=== PATIENT | female | born 1940 | race Caucasian/White ===

== ENCOUNTER 2017-04-30 08:28 | Outpatient (CLI) | payer MEDICARE ==
--- NOTE | 2017-05-03 16:01 | Mammography Report ---
DIGITAL SCREENING MAMMOGRAM: 04/30/2017 CLINICAL INDICATION: A 77-year-old for screening. COMPARISON: 03/2016, 03/2015, 02/2014, 02/2013, 02/2012, 02/2011, 01/2010. TECHNIQUE: Routine CC and MLO projections were obtained of the breasts. FINDINGS: The breasts demonstrate scattered fibroglandular densities bilaterally. Punctate, typical ly benign calcifications are present. No suspicious masses, clustered microcalcifications, or region s of architectural distortion are identified. IMPRESSION: BENIGN FINDINGS. RECOMMENDATION: Routine annual screening unless otherwise clinically indicated. BIRADS CATEGORY 2 BENIGN FINDINGS. STANDARD QUALIFYING STATEMENTS 1. This examination was reviewed with the aid of Computer-Aided Detection (CAD). 2. A negative or benign imaging report should not delay biopsy if clinically suspicious findings are present. Consider surgical consultation if warranted. More than 5% of cancers are not identified by i maging. 3. Dense breasts may obscure an underlying neoplasm. JOB #: [id number] EXT JOB #:[id number]
== END 2017-04-30 08:29 | disposition home or self-care (01) ==
LOC: DI 08:28
PROVIDERS: ATTEND Internal Medicine
DX: Z12.31 Encounter for screening mammogram for malignant neoplasm of breast (principal)
CPT/HCPCS: 77067

== ENCOUNTER 2017-07-08 09:09 | Day surgery (SDC) | payer MEDICARE ==
[2017-07-08] MEDS ORDERED: LACTATED RINGERS 1,000 ML IV ONE (09:33)
[2017-07-08] MEDS ORDERED: fentaNYL 100 MCG/2 ML VIAL IVP ONE (10:05)
[2017-07-08] MEDS ORDERED: MIDAZOLAM 2 MG/2 ML VIAL IVP ONE (10:05)
[2017-07-08 11:21] VITALS: BP 106/63
== END 2017-07-08 09:10 | disposition home or self-care (01) ==
LOC: SDS 09:09
PROVIDERS: ATTEND Surgery
PROC: 0DBH8ZX Excision of Cecum, Via Natural or Artificial Opening Endoscopic, Diagnostic (ICD-10-PCS; principal; 2017-07-08 10:15)
DX: Z12.11 Encounter for screening for malignant neoplasm of colon (principal); K63.5 Polyp of colon; K57.30 Diverticulosis of large intestine without perforation or abscess without bleeding; K64.8 Other hemorrhoids
CPT/HCPCS: 45380; 88305; J7120

== ENCOUNTER 2018-05-04 11:13 | Outpatient (CLI) | payer MEDICARE ==
--- NOTE | 2018-05-05 10:56 | Mammography Report ---
DIGITAL SCREENING MAMMOGRAM: 05/04/2018 COMPARISON: 04/30/2017, 04/15/2016, 04/09/2015, 03/16/2014, 03/03/2013, 03/04/2012, 02/27/2011 and 02/18/2010. TECHNIQUE: Bilateral digital CC and MLO projections. FINDINGS: There are scattered fibroglandular densities. There is no dominant mass, architectural distortion, skin thickening, suspicious microcalcifications or significant interval change. IMPRESSION: NEGATIVE. BI-RADS CATEGORY 1 - NEGATIVE. SUGGEST RETURN TO ROUTINE SCREENING IN 12 MONTHS. STANDARD QUALIFYING STATEMENTS: 1. This examination was reviewed with the aid of Computer-Aided Detection (CAD). 2. A negative or benign imaging report should not delay biopsy if clinically suspicious findings are present. Consider surgical consultation if warranted. More than 5% of cancers are not identified by imaging. 3. Dense breasts may obscure an underlying neoplasm. TD: 05/05/2018 10:04
== END 2018-05-04 11:14 | disposition home or self-care (01) ==
LOC: DI 11:13
PROVIDERS: ATTEND Internal Medicine
DX: Z12.31 Encounter for screening mammogram for malignant neoplasm of breast (principal)
CPT/HCPCS: 77067

== ENCOUNTER 2019-05-15 08:52 | Outpatient (CLI) | payer MEDICARE ==
--- NOTE | 2019-05-15 10:07 | Mammography Report ---
Reason: SCREENING MAMMO Procedure Date: 05/15/2019 Accession Number: [id number] / [id number] Procedure: FELIPE - Screening Mammo w/Sunil CPT Code: FULL RESULT: EXAM: Screening Mammo w/Sunil DATE: 05/15/2019 9:30 AM CLINICAL HISTORY: Screening encounter. No reported risk factors. TECHNIQUE: (B) - Bilateral CC and MLO views were obtained. COMPARISON: 05/04/2018 through 04/09/2015. PARENCHYMAL PATTERN: (A) - The breast(s) demonstrate(s) scattered fibroglandular densities. FINDINGS: There are no suspicious masses, calcifications, or areas of distortion. IMPRESSION: Negative examination. BI-RADS category 1. RECOMMENDATION: (ANNUAL) - Recommend routine annual screening mammography. BI-RADS CATEGORY: (1) - Negative. STANDARD QUALIFYING STATEMENTS: 1. This examination was not reviewed with the aid of Computer-Aided Detection (CAD). 2. A negative or benign imaging report should not preclude biopsy if clinically suspicious findings are present. 3. Dense breasts may obscure an underlying neoplasm. 4. This examination was reviewed with the aid of 3D breast imaging (tomosynthesis).
== END 2019-05-15 08:53 | disposition home or self-care (01) ==
LOC: DI 08:52
PROVIDERS: ATTEND Internal Medicine
DX: Z12.31 Encounter for screening mammogram for malignant neoplasm of breast (principal)
CPT/HCPCS: 77063; 77067

== ENCOUNTER 2020-07-24 13:28 | Outpatient (CLI) | payer MEDICARE ==
--- NOTE | 2020-07-30 09:43 | Mammography Report ---
BILATERAL DIGITAL SCREENING MAMMOGRAM 3D/2D: 07/24/2020 CLINICAL: Routine screening. Comparison is made to exams dated: 05/15/2019 mammogram, 05/04/2018 mammogram, 04/30/2017 mammogram, 04/15 mammogram, 04/09/2015 mammogram, and 03/16/2014 mammogram - [facility]. There are scattered fibroglandular elements in both breasts. No significant masses, calcifications, or other findings are seen in either breast. There has been no significant interval change. IMPRESSION: NEGATIVE There is no mammographic evidence of malignancy. A 1 year screening mammogram is recommended. This exam was interpreted at Station ID: [id number]. NOTE: For mammograms, a report in lay terms will be sent to the patient. Approximately 15% of breast malignancies will not be visualized mammographically. In the management of a palpable breast mass, a negative mammogram must not discourage biopsy of a clinically suspicious lesion. Electronically Signed By: Solo leal/carmen:07/29/2020 16:47:22 ACR BI-RADS Category 1: Negative 3341F PARENCHYMAL PATTERN: (A) - The breast(s) demonstrate(s) scattered fibroglandular densities. BI-RADS CATEGORY: (1) - 1 RECOMMENDATION: (ANNUAL) - Recommend routine annual screening mammography. [id number] 1 year screening LATERALITY: (B)
== END 2020-07-24 13:29 | disposition home or self-care (01) ==
LOC: DI 13:28
PROVIDERS: ATTEND Internal Medicine
DX: Z12.31 Encounter for screening mammogram for malignant neoplasm of breast (principal)
CPT/HCPCS: 77063; 77067

== ENCOUNTER 2022-06-02 08:00 | Outpatient (CLI) | payer MEDICARE ==
[2022-06-02 16:27] LABS: ALBUMIN/GLOBULIN RATIO 1.3 (1.0-2.2); ALKALINE PHOSPHATASE 59 IU/L (42-121); ALT ALANINE AMINOTRANSFERASE 21 IU/L (10-60); AST ASPARTATE AMINOTRANSFERASE 26 IU/L (10-42); BILIRUBIN,TOTAL 0.9 mg/dL (0.2-1.0); BUN - BLOOD UREA NITROGEN 20 mg/dL (6-20); CALCIUM 9.2 mg/dL (8.5-10.3); CARBON DIOXIDE - CO2 28 mmol/L (21-32); CHLORIDE 99 mmol/L (101-111); CHOL/HDL RATIO 2.9 (<4.4); CHOLESTEROL 238 mg/dL; CREATININE 0.9 mg/dL (0.4-1.0); GFR - MDRD 60 (>89); GLUCOSE 89 mg/dL (70-100); HDL CHOLESTEROL 81 mg/dL; LDL CHOLESTEROL,CALCULATED 147 mg/dL; LDL/HDL RATIO 1.8 (<4.4); SODIUM 136 mmol/L (135-145); TOTAL PROTEIN 7.2 g/dL (6.7-8.2); TRIGLYCERIDES 52 mg/dL; VLDL CHOLESTEROL 10 mg/dL
[2022-06-02 16:40] LABS: BASOPHILS % (AUTO) 0.7 %; EOSINOPHILS # (AUTO) 0.1 10^3/uL (0.0-0.7); EOSINOPHILS % (AUTO) 1.6 %; HCT - HEMATOCRIT 44.4 % (37.0-47.0); HGB - HEMOGLOBIN 14.1 g/dL (12.0-16.0); LYMPHOCYTES # (AUTO) 1.3 10^3/uL (1.5-3.5); LYMPHOCYTES % (AUTO) 28.5 %; MEAN CORPUSCULAR HEMOGLOBIN 29.6 pg (27.0-31.0); MEAN CORPUSCULAR HGB CONC 31.8 g/dL (32.0-36.0); MEAN CORPUSCULAR VOLUME 93.3 fL (81.0-99.0); MEAN PLATELET VOLUME 10.7 fL (7.9-10.8); MONOCYTES # (AUTO) 0.3 10^3/uL (0.0-1.0); MONOCYTES % (AUTO) 6.7 %; NEUTROPHILS # (AUTO) 2.8 10^3/uL (1.5-6.6); NEUTROPHILS % (AUTO) 62.3 %; PLT - PLATELET COUNT 266 10^3/uL (130-450); RED BLOOD COUNT 4.76 10^6/uL (4.20-5.40); RED CELL DISTRIBUTION WIDTH 13.6 % (12.0-15.0); WHITE BLOOD COUNT 4.5 x10^3/uL (4.8-10.8)
[2022-06-02 20:57] LABS: ESTIMATED AVERAGE GLUCOSE 126 mg/dL (70-100)
== END 2022-06-02 23:59 | disposition home or self-care (01) ==
LOC: LAB.R 08:00
PROVIDERS: ATTEND Internal Medicine
DX: Z00.00 Encounter for general adult medical examination without abnormal findings (principal); C44.91 Basal cell carcinoma of skin, unspecified; E55.9 Vitamin D deficiency, unspecified; L30.9 Dermatitis, unspecified; H91.90 Unspecified hearing loss, unspecified ear; Z86.010 Personal history of colon polyps; E78.5 Hyperlipidemia, unspecified; R73.01 Impaired fasting glucose; M19.90 Unspecified osteoarthritis, unspecified site; M25.562 Pain in left knee; R00.2 Palpitations; J30.2 Other seasonal allergic rhinitis; I49.3 Ventricular premature depolarization
CPT/HCPCS: 80053; 80061; 82306; 83036; 83721; 84443; 85025

== ENCOUNTER 2022-06-25 13:24 | Outpatient (CLI) | payer MEDICARE ==
--- NOTE | 2022-06-26 12:35 | Mammography Report ---
BILATERAL DIGITAL SCREENING MAMMOGRAM 3D/2D: 06/25/2022 CLINICAL: Routine screening. Comparison is made to exams dated: 07/24/2020 mammogram, 07/24/2020 mammogram, 05/15/2019 mammogram, 05/04/2018 mammogram, and 04/30/2017 mammogram - [facility]. There are scattered fibrogl andular elements in both breasts. No significant masses, calcifications, or other findings are seen in either breast. There has been no significant interval change. IMPRESSION: NEGATIVE There is no mammographic evidence of malignancy. A 1 year screening mammogram is recommended. Based on the Tyrer Cuzick model (a risk assessment model) the patients lifetime risk is 1.0% and her 10 year risk is 0.0%. According to the ACR, ACS, and NCCN guidelines, an annual breast MRI exam sil g with mammogram is recommended if the patients lifetime risk is 20% or greater. This exam was interpreted at Station ID: [id number]. NOTE: For mammograms, a report in lay terms will be sent to the patient. Approximately 15% of breast malignancies will not be visualized mammographically. In the management of a palpable breast mass, a negative mammogram must not discourage biopsy of a clinically suspicious lesion. Electronically Signed By: Avila Hartman acr/penrad:06/25/2022 16:28:43 ACR BI-RADS Category 1: Negative 3341F PARENCHYMAL PATTERN: (A) - The breast(s) demonstrate(s) scattered fibroglandular densities. BI-RADS CATEGORY: (1) - 1 RECOMMENDATION: (ANNUAL) - Recommend routine annual screening mammography. [id number] 1 year screening LATERALITY: (B)
== END 2022-06-25 13:25 | disposition home or self-care (01) ==
LOC: DI 13:24
PROVIDERS: ATTEND Internal Medicine
DX: Z12.31 Encounter for screening mammogram for malignant neoplasm of breast (principal)

== ENCOUNTER 2023-06-01 18:42 | Emergency (ER) | payer MEDICARE ==
[2023-06-01 18:54] VITALS: BP 152/80
[2023-06-01 19:15] LABS: BASOPHILS # (AUTO) 0.1 10^3/uL (0.0-0.1); BASOPHILS % (AUTO) 0.6 %; EOSINOPHILS # (AUTO) 0.1 10^3/uL (0.0-0.7); HCT - HEMATOCRIT 41.5 % (37.0-47.0); HGB - HEMOGLOBIN 13.2 g/dL (12.0-16.0); LYMPHOCYTES # (AUTO) 1.5 10^3/uL (1.5-3.5); LYMPHOCYTES % (AUTO) 16.5 %; MEAN CORPUSCULAR HEMOGLOBIN 29.1 pg (27.0-31.0); MEAN CORPUSCULAR HGB CONC 31.8 g/dL (32.0-36.0); MEAN CORPUSCULAR VOLUME 91.4 fL (81.0-99.0); MEAN PLATELET VOLUME 9.7 fL (7.9-10.8); MONOCYTES # (AUTO) 0.7 10^3/uL (0.0-1.0); MONOCYTES % (AUTO) 8.1 %; NEUTROPHILS # (AUTO) 6.4 10^3/uL (1.5-6.6); NEUTROPHILS % (AUTO) 73.5 %; PLT - PLATELET COUNT 271 10^3/uL (130-450); RED BLOOD COUNT 4.54 10^6/uL (4.20-5.40); RED CELL DISTRIBUTION WIDTH 13.6 % (12.0-15.0); WHITE BLOOD COUNT 8.8 x10^3/uL (4.8-10.8)
--- NOTE | 2023-06-01 19:30 | ED Physician Documentation ---
PD HPI CHEST PAIN - Stated complaint Stated Complaint: LT SHOULDER/CHEST PX - Chief complaint Chief Complaint: Cardiac - History obtained from History obtained from: Patient - Additional information Additional information: Walking around [place] a lot 2 days ago with a backpack. She developed left shoulder pain which concerned her because it did radiate to the left jaw and in the left armpit. It is not worse with exertion. It is worse if she wears a backpack where she lifts her left arm. There is no associated shortness of breath, dizziness, sweatiness, nausea, pedal edema, calf pain, or more significant traveled into [place]. No history of heart problems. Really no risk factors either other than age. PD PAST MEDICAL HISTORY - Past Medical History Cardiovascular: Other Respiratory: Pneumonia GI: Other HEENT: None - Past Surgical History General: Colonoscopy, Other - Allergies Allergies/Adverse Reactions: Allergies Allergy/AdvReac Type Severity Reaction Status Date / Time adhesive tape AdvReac Itching Verified 06/01/23 18:46 PD ED PE NORMAL - Vitals Vital signs reviewed: Yes - General General: Alert and oriented X 3, No acute distress - HEENT HEENT: PERRL, EOMI - Neck Neck: Supple, no meningeal sign, No bony TTP - Cardiac Cardiac: RRR, No murmur - Respiratory Respiratory: No respiratory distress, Clear bilaterally - Abdomen Abdomen: Normal bowel sounds, Soft, Non tender - Back Back: No CVA TTP, No spinal TTP - Derm Derm: Normal color, Warm and dry - Extremities Extremities: No edema, No calf tenderness / cord, Other (I am able to recreate the pain that she is here for with palpation of the muscles in the supraclavicular area of the left shoulder. She has pain if she lifts the arm more than 90 degrees, but does better passively.) - Neuro Neuro: Alert and oriented X 3, Normal speech Results - Vitals Vitals: Vital Signs - 24 hr 06/01/23 06/01/23 18:46 20:16 Temperature 36.7 C Heart Rate 85 72 Respiratory 18 16 Rate Blood Pressure 152/80 H 152/80 H O2 Saturation 100 100 Oxygen O2 Source Room air - EKG (time done) 1855 EKG releavant findings:: EKG personally interpreted by author of this note. Relevant findings are: Rate: Rate (enter#) (78) Rhythm: NSR Merritt: Normal Intervals: Normal [place] QRS: Normal Ischemia: Normal ST segments - Labs Labs: Laboratory Tests 06/01/23 06/01/23 06/01/23 19:10 19:10 19:10 WBC 8.8 RBC 4.54 Hgb 13.2 Hct 41.5 MCV 91.4 MCH 29.1 MCHC 31.8 L RDW 13.6 Plt Count 271 MPV 9.7 Neut # (Auto) 6.4 Lymph # (Auto) 1.5 Stewart # (Auto) 0.7 Eos # (Auto) 0.1 Baso # (Auto) 0.1 Absolute Nucleated RBC 0.00 Nucleated RBC % 0.0 Sodium 136 Potassium 4.4 Chloride 101 Carbon Dioxide 23 Anion Gap 12.0 BUN 24 H Creatinine 1.0 Estimated GFR (MDRD) 53 L Glucose 99 Calcium 8.6 Total Bilirubin 0.7 AST 26 ALT 17 Alkaline Phosphatase 63 Troponin I High Sens 2.4 Total Protein 7.2 Albumin 3.9 Globulin 3.3 Albumin/Globulin Ratio 1.2 Lipase 37 - Rads (name of study) Single view chest x-ray is unremarkable Relevant Findings:: Final report received, EMP independent interpretation of test PD Medical Decision Making - ED course Complexity details: reviewed results (CBC normal/negative troponin normal/negative. ) ED course: Pain is reproducible with palpation of the left shoulder and brought on by carrying a backpack all day. It is not exertional at this point and has been going on long enough that a single troponin should be predictive. Departure - Departure Disposition: 01 Home, Self Care Clinical Impression: Left shoulder pain Qualifiers: Chronicity: acute Qualified Code(s): M25.512 - Pain in left shoulder Condition: Good Record reviewed to determine appropriate education?: Yes Instructions: ED Chest Pain NonCardiac Comments: Troponin testing and EKG today were normal suggesting against heart attack related chest pain which fits the history and physical which would suggest a musculoskeletal cause of the pain related to your left shoulder and the backpack use. Call your doctor to arrange a follow-up appointment, make the next available appointment. In the interim, return anytime if worse or if new symptoms develop. Discharge Date/Time: 06/01/23 20:23
[2023-06-01 20:01] LABS: ALBUMIN 3.9 g/dL (3.2-5.5); ALBUMIN/GLOBULIN RATIO 1.2 (1.0-2.2); BILIRUBIN,TOTAL 0.7 mg/dL (0.2-1.0); CALCIUM 8.6 mg/dL (8.5-10.3); POTASSIUM 4.4 mmol/L (3.5-5.0); TOTAL PROTEIN 7.2 g/dL (6.7-8.2)
--- NOTE | 2023-06-01 20:23 | XRAY Report ---
PROCEDURE: Chest 1 View X-Ray INDICATIONS: Chest Pain TECHNIQUE: One view of the chest was acquired. COMPARISON: None. FINDINGS: Surgical changes and devices: None. Lungs and pleura: No pleural effusions or pneumothorax. Lungs are clear. Mediastinum: Mediastinal contours appear normal. Heart size is normal. Bones and chest wall: No suspicious bony lesions. Overlying soft tissues appear unremarkable. IMPRESSION: No acute cardiopulmonary disease. Reviewed by: Solo Hawk MD on 06/01/2023 8:21 PM PDT Approved by: Solo Hawk MD on 06/01/2023 8:21 PM PDT Station ID: [id number]
== END 2023-06-01 20:23 | disposition home or self-care (01) ==
LOC: ED 18:42
DX: M25.512 Pain in left shoulder (principal)
CPT/HCPCS: 36415; 80053; 83690; 84484; 85025; 93005; 99283; 99284

== ENCOUNTER 2023-07-29 10:04 | Outpatient (CLI) | payer MEDICARE ==
--- NOTE | 2023-07-30 16:30 | Mammography Report ---
BILATERAL DIGITAL SCREENING MAMMOGRAM: 07/29/2023 CLINICAL: Routine screening. Comparison is made to exams dated: 06/25/2022 mammogram, 07/24/2020 mammogram, 07/24/2020 mammogram, mammogram, 05/04/2018 mammogram, and 04/30/2017 mammogram - [facility]. Both breasts are almost entirely fatty (category a/<25% glandular tissue). There are benign vascular calcifications in the left breast. No significant masses, calcifications, or other findings are seen in either breast. There has been no significant interval change. IMPRESSION: BENIGN There is no mammographic evidence of malignancy. A 1 year screening mammogram is recommended. Based on the Tyrer Cuzick model (a risk assessment model) the patients lifetime risk is 0.4% and her 10 year risk is 0.0%. According to the ACR, ACS, and NCCN guidelines, an annual breast MRI exam sil g with mammogram is recommended if the patients lifetime risk is 20% or greater. This exam was interpreted at Station ID: [id number]. NOTE: For mammograms, a report in lay terms will be sent to the patient. Approximately 15% of breast malignancies will not be visualized mammographically. In the management of a palpable breast mass, a negative mammogram must not discourage biopsy of a clinically suspicious lesion. Electronically Signed By: Monica ruby/carmen:07/30/2023 15:55:31 letter sent: No_Letter ACR BI-RADS Category 2: Benign Finding(s) 3342F PARENCHYMAL PATTERN: (F) - The breast(s) demonstrate(s) diffuse fatty replacement. BI-RADS CATEGORY: (2) - 2 Mammogram [id number] 1 year screening LATERALITY: (B)
== END 2023-07-29 10:05 | disposition home or self-care (01) ==
LOC: DI 10:04
PROVIDERS: ATTEND Internal Medicine
DX: Z12.31 Encounter for screening mammogram for malignant neoplasm of breast (principal)

== ENCOUNTER 2024-04-27 07:02 | Day surgery (SDC) | payer MEDICARE ==
[2024-04-27] MEDS: PROPARACAINE 0.5% OPHTH DROPS 15 ML ONE (07:15)
[2024-04-27] MEDS: KETOROLAC 0.45% OPHTH DROPS ONE (07:16)
[2024-04-27] MEDS: PHENYLEPHRINE 2.5% OPHTH 2 ML DROPS ONE (07:18)
[2024-04-27] MEDS: CYCLOPENTOLATE 1% OPHTH DROPS 2 ML ONE (07:18)
[2024-04-27] MEDS: LACTATED RINGERS 1,000 ML IV ONE ×2 (07:30→09:08)
--- NOTE | 2024-04-27 07:52 | ANESTHESIA ---
Pre-Anesthesia VS, & Labs - Diagnosis R senile combined cataract - Procedure R extraction cataract with IOL Vital Signs: Temp Pulse Resp BP Pulse Ox O2 Flow Rate 36.5 C 88 16 157/84 H 97 04/27/24 07:13 04/27/24 07:13 04/27/24 07:13 04/27/24 07:13 04/27/24 07:13 Height: 5 ft 9 in Weight (kg): 68.1 kg Body Mass Index: 22.1 BMI Classification: Normal - NPO Last Fluid Intake: 0545 sips h20 - Is Patient ?: No - Lab Results Lab results reviewed: Yes Home Medications and Allergies Allergies/Adverse Reactions: Allergies Allergy/AdvReac Type Severity Reaction Status Date / Time adhesive tape AdvReac Itching Verified 06/01/23 18:46 Anes History & Medical History - Anesthetic History Anesthesia Complications: reports: No previous complications Family history of Anesthesia Complications: Denies Family history of Malignant Hyperthermia: Denies - Medical History Cardiovascular: reports: None Pulmonary: reports: None Gastrointestinal: reports: None Urinary: reports: None Musculoskeletal: reports: Osteoarthritis Endocrine/Autoimmune: reports: None Skin: reports: Eczema - Surgical History General: reports: Colonoscopy Exam General: Alert, Oriented x3, Cooperative Dental: WNL Mouth Openin Fingerbreadth Neck Mobility: Normal Mallampati classification: II Thyromental Distance: 4-6 cm Respiratory: Lungs clear, Normal breath sounds, No respiratory distress Cardiovascular: Regular rate Neurological: Normal speech Mental/Cognitive Status: Alert/Oriented X3, Normal for patient Cognitive Status: Within normal limits Plan Anesthesia Type: MAC Consent for Procedure(s) Verified and Reviewed: Yes Code Status: Attempt Resuscitation ASA classification: 2-Mild systemic disease Is this case an emergency?: No
[2024-04-27] MEDS ORDERED: MIDAZOLAM 2 MG/2 ML VIAL ONE (08:19)
[2024-04-27] MEDS ORDERED: BRIMONIDINE 0.2% OPHTH DROPS 5 ML ONE (08:31)
[2024-04-27] MEDS ORDERED: TIMOLOL 0.5% OPHTH DROPS ONE (08:31)
[2024-04-27] MEDS ORDERED: EPINEPHrine 1 MG/ML AMP ONE (08:31)
[2024-04-27] MEDS ORDERED: BSS/LIDOCAINE/EPINEPHRINE 1 ML VIAL ONE ×2 (08:31→08:54)
[2024-04-27] MEDS ORDERED: TRIAMCIN/MOXIFLOX OPHTHALMIC 0.6 ML VIAL IO ONE (08:31)
[2024-04-27] MEDS ORDERED: fentaNYL 100 MCG/2 ML VIAL ONE (08:56)
[2024-04-27] MEDS: TIMOLOL 0.5% OPHTH DROPS OPTH ONE (09:00)
[2024-04-27] MEDS: BRIMONIDINE 0.2% OPHTH DROPS 5 ML OPTH ONE (09:00)
[2024-04-27] MEDS: TRIAMCIN/MOXIFLOX OPHTHALMIC 0.6 ML VIAL IO ONE (09:00)
[2024-04-27] MEDS: BSS/LIDOCAINE/EPINEPHRINE 1 ML SYRINGE IO ONE (09:00)
[2024-04-27] MEDS: EPINEPHrine 1 MG/ML AMP IR ONE (09:00)
[2024-04-27] MEDS: PROPARACAINE 0.5% OPHTH DROPS 15 ML RIGHTEYE ONE (09:00)
[2024-04-27] MEDS: VANCOMYCIN OPHTH (TOPICAL) 10 MG/ML SYRINGE TOP ONE (09:01)
--- NOTE | 2024-04-27 09:18 | OPERATIVE REPORT ---
Operative Report - Other Other Information/Narrative: Date of Surgery: 04/27/24 Preop Dx: Visually significant cataract right eye. This was the first cataract surgery. Postop Dx: Same Procedure: Phacoemulsification with posterior chamber intraocular lens implant right eye Surgeon: Dr. Dario Burns Anesthesia: Monitored anesthesia care Complications: None Operative Indications: This is a 84-year-old F with progressive vision loss in the right eye due to 2-3+ nuclear sclerotic, 3+ cortical, and 1+ posterior subcapsular cataract. Best corrected visual acuity was 20/40 with glare to hand motion vision in the right eye. Indications for surgery were: - Overall decrease in vision - Difficulty seeing words on a computer screen - Difficulty seeing words, closed captions, or game scores on TV - Difficulty seeing street signs - Difficulty driving in low light or at night - Difficulty driving at night because of headlights from other vehicles - Difficulty with glare or bright lights in any situation The patient was consented at length concerning the risks and benefits of cataract surgery after which the patient expressed a desire to proceed with surgery. Operative Procedure: The patient was taken into OR#3 and placed under monitored anesthesia care. A surgical time-out was conducted confirming correct patient, correct procedure, and correct surgical site. The patient was given topical anesthesia and then prepped and draped in the usual sterile fashion. The eye was entered at the 6 and 3 oclock positions. Intracameral Shugarcaine was injected into the anterior chamber followed by a dispersive viscoelastic. A continuous-tear curvilinear capsulorhexis was performed. The nucleus was hydrodissected and phacoemulsified. The cortex was evacuated using automated infusion and aspiration. A cohesive viscoelastic was injected into the capsular bag and a 18.5 diopter intraocular lens was inserted into the bag. Infusion and aspiration were used to evacuate the viscoelastic materials from the eye. The wounds were hydrated and the eye inflated to physiologic pressure using balanced salt solution. Approximately 0.25ml of a mixture of triamcinolone and moxifloxacin was injected trans-sclerally into the vitreous in the inferotemporal quadrant using a 30 gauge cannula. An additional 0.25ml of a mixture of triamcinolone and moxifloxacin was injected subconjunctivally in the superior quadrant for infection and inflammation prophylaxis. Wound integrity was checked with Weck-Tracey sponges. The patient was taken from the operating room in good condition and given post-op instructions.
[2024-04-27 09:21] VITALS: O2SAT 98
[2024-04-27 09:41] VITALS: BP 124/82
--- NOTE | 2024-04-27 10:12 | ANESTHESIA POST OP EVALUATION ---
Anesthesia Post Eval - Post Anesthesia Eval Vitals: Last Vital Signs Temp 36.3 C L 04/27/24 09:29 Pulse 84 04/27/24 09:29 Resp 14 04/27/24 09:29 BP 124/82 H 04/27/24 09:29 Pulse Ox 98 04/27/24 09:29 O2 Flow Rate CV Function Including HR & BP: Stable Pain Control: Satisfactory Nausea & Vomiting: Negative Mental Status: Baseline Respiratory Status: Airway Patent Hydration Status: Satisfactory Anesthesia Complications: None
== END 2024-04-27 07:03 | disposition home or self-care (01) ==
LOC: SDS 07:02
PROVIDERS: ATTEND Ophthalmology
DX: H25.811 Combined forms of age-related cataract, right eye (principal)
CPT/HCPCS: 66984; A9270; J3490; J7120

== ENCOUNTER 2024-06-06 10:03 | Outpatient (CLI) | payer MEDICARE ==
--- NOTE | 2024-06-06 13:31 | Ultrasound Report ---
PROCEDURE: Duplex Ext Veins Left INDICATIONS: PAININ LEFT LEG TECHNIQUE: Real-time imaging, as well as color and pulse Doppler interrogation, were performed of the lower extr emity deep veins from the inguinal ligament to the popliteal fossa. Attempted visualization of the ca lf veins was performed. COMPARISON: None. FINDINGS: The deep veins are normally compressible, and free of intraluminal thrombus. Color and pu lse Doppler demonstrate normal phasic intraluminal flow. There is normal augmentation response to di stal compression maneuver. Popliteal fossa cyst is present measuring 4.1 x 1.0 x 2.4 cm. IMPRESSION: No deep venous thrombosis of the visualized lower extremity. Posterior fossa Do's cyst. Reviewed by: Norma Gerber MD on 06/06/2024 1:30 PM PDT Approved by: Norma Gerber MD on 06/06/2024 1:30 PM PDT Station ID: [id number]
== END 2024-06-06 10:04 | disposition home or self-care (01) ==
LOC: DI 10:03
PROVIDERS: ATTEND Internal Medicine
DX: M71.22 Synovial cyst of popliteal space [Baker], left knee (principal)

== ENCOUNTER 2024-07-06 07:18 | Day surgery (SDC) | payer MEDICARE ==
[2024-07-06] MEDS: LACTATED RINGERS 1,000 ML IV ONE ×2 (07:24→09:04)
[2024-07-06] MEDS: PROPARACAINE 0.5% OPHTH DROPS 15 ML ONE (07:40)
[2024-07-06] MEDS: KETOROLAC TROMETHAMINE 0.5% OPHTH DROPS 5 ML ONE (07:41)
[2024-07-06] MEDS: CYCLOPENTOLATE 1% OPHTH DROPS 2 ML ONE (07:42)
[2024-07-06] MEDS: PHENYLEPHRINE 2.5% OPHTH 2 ML DROPS ONE (07:48)
[2024-07-06] MEDS ORDERED: MIDAZOLAM 2 MG/2 ML VIAL ONE (08:21)
[2024-07-06] MEDS ORDERED: EPINEPHrine 1 MG/ML AMP ONE (08:23)
[2024-07-06] MEDS ORDERED: BSS/LIDOCAINE/EPINEPHRINE 1 ML VIAL ONE (08:23)
[2024-07-06] MEDS ORDERED: TRIAMCIN/MOXIFLOX OPHTHALMIC 0.6 ML VIAL IO ONE (08:23)
[2024-07-06] MEDS ORDERED: TIMOLOL 0.5% OPHTH DROPS ONE (08:23)
[2024-07-06] MEDS ORDERED: BRIMONIDINE 0.2% OPHTH DROPS 5 ML ONE (08:23)
--- NOTE | 2024-07-06 08:42 | ANESTHESIA ---
Pre-Anesthesia VS, & Labs - Diagnosis L cataract - Procedure L PhacoIOL Vital Signs: Temp Pulse Resp BP Pulse Ox O2 Flow Rate 36 C L 79 16 157/87 H 98 07/06/24 07:28 07/06/24 07:28 07/06/24 07:28 07/06/24 07:28 07/06/24 07:28 Height: 5 ft 9 in Weight (kg): 62.5 kg Body Mass Index: 20.3 BMI Classification: Normal - NPO >8 hours - Is Patient ?: No Home Medications and Allergies Home Medications: Ambulatory Orders B-Complex with Vitamin C [Vitamin B-Complex with Vit C] 1 each PO DAILY 07/05/24 Vitamin E Mixed [Vitamin E] 1,000 unit PO DAILY 07/05/24 B-Complex with Vitamin C [Vitamin B-Complex with Vit C] 1 each PO DAILY 07/05/24 Vitamin E Mixed [Vitamin E] 1,000 unit PO DAILY 07/05/24 Allergies/Adverse Reactions: Allergies Allergy/AdvReac Type Severity Reaction Status Date / Time adhesive tape AdvReac Itching Verified 06/01/23 18:46 Anes History & Medical History - Anesthetic History Anesthesia Complications: reports: No previous complications Family history of Anesthesia Complications: Denies Family history of Malignant Hyperthermia: Denies - Medical History Cardiovascular: reports: None Pulmonary: reports: None Gastrointestinal: reports: None Urinary: reports: None Musculoskeletal: reports: Osteoarthritis Endocrine/Autoimmune: reports: None Skin: reports: Eczema - Surgical History General: reports: Colonoscopy Exam General: Alert, Oriented x3, Cooperative Dental: WNL Mouth Openin Fingerbreadth Neck Mobility: Normal Mallampati classification: II Thyromental Distance: 4-6 cm Respiratory: Lungs clear Cardiovascular: Regular rate Plan Anesthesia Type: MAC Consent for Procedure(s) Verified and Reviewed: Yes Code Status: Attempt Resuscitation ASA classification: 2-Mild systemic disease Is this case an emergency?: No
[2024-07-06] MEDS: EPINEPHrine 1 MG/ML AMP IR ONE (08:49)
[2024-07-06] MEDS: BRIMONIDINE 0.2% OPHTH DROPS 5 ML OPTH ONE (08:49)
[2024-07-06] MEDS: TIMOLOL 0.5% OPHTH DROPS OPTH ONE (08:49)
[2024-07-06] MEDS: BSS/LIDOCAINE/EPINEPHRINE 1 ML SYRINGE IO ONE (08:50)
[2024-07-06] MEDS: PROPARACAINE 0.5% OPHTH DROPS 15 ML LEFTEYE ONE (08:50)
[2024-07-06] MEDS: VANCOMYCIN OPHTH (TOPICAL) 10 MG/ML SYRINGE TOP ONE (08:50)
[2024-07-06] MEDS: TRIAMCIN/MOXIFLOX OPHTHALMIC 0.6 ML VIAL IO ONE (08:50)
[2024-07-06 09:07] VITALS: O2SAT 97
--- NOTE | 2024-07-06 09:10 | OPERATIVE REPORT ---
Operative Report - Other Other Information/Narrative: Date of Surgery: 07/06/24 Preop Dx: Visually significant cataract left eye. Cataract surgery was performed in the right eye on [id number]. Postop Dx: Same Procedure: Phacoemulsification with posterior chamber intraocular lens implant left eye Surgeon: Dr. Dario Burns Anesthesia: Monitored anesthesia care Complications: None Operative Indications: This is a 84-year-old F with progressive vision loss in the left eye due to 2-3+ nuclear sclerotic, 3+ cortical, and 1+ posterior subcapsular cataract. Best corrected visual acuity was 20/40 with glare to 20/400 vision in the left eye. Indications for surgery were: - Overall decrease in vision - Difficulty seeing words on a computer screen - Difficulty reading - Difficulty seeing words, closed captions, or game scores on TV - Difficulty seeing street signs - Difficulty driving in low light or at night - Difficulty driving at night because of headlights from other vehicles - Difficulty with glare or bright lights in any situation The patient was consented at length concerning the risks and benefits of cataract surgery after which the patient expressed a desire to proceed with surgery. Operative Procedure: The patient was taken into OR#3 and placed under monitored anesthesia care. A surgical time-out was conducted confirming correct patient, correct procedure, and correct surgical site. The patient was given topical anesthesia and then prepped and draped in the usual sterile fashion. The eye was entered at the 6 and 3 oclock positions. Intracameral Shugarcaine was injected into the anterior chamber followed by a dispersive viscoelastic. A continuous-tear curvilinear capsulorhexis was performed. The nucleus was hydrodissected and phacoemulsified. The cortex was evacuated using automated infusion and aspiration. A cohesive viscoelastic was injected into the capsular bag and a 20.0 diopter intraocular lens was inserted into the bag. Infusion and aspiration were used to evacuate the viscoelastic materials from the eye. The wounds were hydrated and the eye inflated to physiologic pressure using balanced salt solution. Approximately 0.25ml of a mixture of triamcinolone and moxifloxacin was injected trans-sclerally into the vitreous in the inferotemporal quadrant using a 30 gauge cannula. An additional 0.25ml of a mixture of triamcinolone and moxifloxacin was injected subconjunctivally in the superior quadrant for infection and inflammation prophylaxis. Wound integrity was checked with Weck-Tracey sponges. The patient was taken from the operating room in good condition and given post-op instructions.
[2024-07-06 09:30] VITALS: BP 133/80
== END 2024-07-06 07:19 | disposition home or self-care (01) ==
LOC: SDS 07:18
PROVIDERS: ATTEND Ophthalmology
DX: H25.812 Combined forms of age-related cataract, left eye (principal); Z98.41 Cataract extraction status, right eye
CPT/HCPCS: 66984; A9270; J3490; J7120

== ENCOUNTER 2024-07-20 08:34 | Outpatient (CLI) | payer MEDICARE ==
--- NOTE | 2024-07-21 12:39 | XRAY Report ---
PROCEDURE: Knee 4+V LT INDICATIONS: KNEE PX, LEFT TECHNIQUE: 4 views of the knee(s) were acquired. COMPARISON: None. FINDINGS: Bones: No fractures or dislocations. Left knee demonstrate mild tricompartmental joint space narrow ing and juxta-articular osteophytosis. Right knee demonstrate moderate lateral and mild medial compar tment joint space narrowing and juxta-articular osteophytosis. No suspicious bony lesions. Diffuse osseous demineralization. Soft tissues: Small knee joint effusion. No suspicious soft tissue calcifications or masses. Vascula r calcifications. IMPRESSION: 1.No acute bony abnormality. If there remains a high clinical concern for fracture, consider cross-se ctional imaging now. If pain persists, consider repeat x-ray in 10-14 days or cross-sectional imaging . 2.Left knee demonstrate mild tricompartmental joint osteoarthritis. 3.Right knee demonstrate moderate lateral and mild medial compartment osteoarthritis. Reviewed by: Katarzyna Rivas MD on 07/21/2024 12:38 PM PDT Approved by: Katarzyna Rivas MD on 07/21/2024 12:38 PM PDT Station ID: [id number]
== END 2024-07-20 08:35 | disposition home or self-care (01) ==
LOC: DI 08:34
PROVIDERS: ATTEND Physician Assistant Surgical
DX: M17.0 Bilateral primary osteoarthritis of knee (principal)

== ENCOUNTER 2024-08-11 09:15 | Outpatient (CLI) | payer MEDICARE ==
--- NOTE | 2024-08-11 10:45 | Mammography Report ---
BILATERAL DIGITAL SCREENING MAMMOGRAM 3D/2D: 08/11/2024 CLINICAL: Routine screening. Comparison is made to exams dated: 07/29/2023 mammogram, 06/25/2022 mammogram, 07/24/2020 mammogram, mammogram, 05/15/2019 mammogram, and 05/04/2018 mammogram - [facility]. There are scattered areas of fibroglandular density (category b / 25%-50% glandular tissue). No significant masses, calcifications, or other findings are seen in either breast. There has been no significant interval change. IMPRESSION: NEGATIVE There is no mammographic evidence of malignancy. A 1 year screening mammogram is recommended. Based on the Tyrer Cuzick model (a risk assessment model) the patient's lifetime risk is 0.3% and her 10 year risk is 0.0%. According to the ACR, ACS, and NCCN guidelines, an annual breast MRI exam sil g with mammogram is recommended if the patient's lifetime risk is 20% or greater. This exam was interpreted at Station ID: [id number]. NOTE: For mammograms, a report in lay terms will be sent to the patient. Approximately 15% of breast malignancies will not be visualized mammographically. In the management of a palpable breast mass, a negative mammogram must not discourage biopsy of a clinically suspicious lesion. Electronically Signed By: Safia Crenshaw M.D., Ph.D. eb/penrad:08/11/2024 10:15:15 ACR BI-RADS Category 1: Negative 3341F PARENCHYMAL PATTERN: (A) - The breast(s) demonstrate(s) scattered fibroglandular densities. BI-RADS CATEGORY: (1) - 1 RECOMMENDATION: (ANNUAL) - Recommend routine annual screening mammography. [id number] 1 year screening LATERALITY: (B)
== END 2024-08-11 09:16 | disposition home or self-care (01) ==
LOC: DI 09:15
PROVIDERS: ATTEND Internal Medicine
DX: Z12.31 Encounter for screening mammogram for malignant neoplasm of breast (principal)